=== PATIENT | male | born 1960 | race Caucasian/White ===

== ENCOUNTER 2017-07-24 10:27 | Outpatient (CLI) | payer BC ==
--- NOTE | 2017-07-24 13:27 | ULT ---
TESTICULAR ULTRASOUND: History Right testicle pain. COMPARISON: None. TECHNIQUE: Ibrahim scale, color flow, Doppler imaging, and spectral waveform analysis was performed of the left and right testicle. FINDINGS: RIGHT HEMISCROTUM: The right testicle has a homogeneous echotexture. No intratesticular mass. The right testicle measu res 3.6 x 2.7 x 4.5 cm. Right epididymis has a normal echotexture measuring 1.3 x 0.7 x 0.7 cm. LEFT HEMISCROTUM: The left testicle has a homogeneous echotexture, without evidence of masses. The left testicle measu res 4.2 x 3.2 x 2.7 cm. There is an anechoic focus in the region of the left epididymis likely repre senting a large epididymal cyst measuring 3.0 x 1.7 x 2.0 cm. No significant fluid in either hemiscrotum. TESTICULAR DOPPLER: Symmetric vascular flow to the left and right testicles. IMPRESSION: Left epididymal cyst; otherwise, unremarkable exam. POS: [facility]
== END 2017-07-24 10:28 | disposition home or self-care (01) ==
LOC: ULT 10:27
PROVIDERS: ATTEND Family Medicine
DX: N50.811 Right testicular pain (principal); N50.3 Cyst of epididymis
CPT/HCPCS: 76870; 93976